=== PATIENT | male | born 1955 | race Caucasian/White ===

== ENCOUNTER → 2017-09-13 | Outpatient (CLI) | payer OTHER ==
[~2017-09-13] MED LIST: GADAVIST IV PRN; OXYC-57 PO; OXYC1TAB3 PO
--- NOTE | 2017-09-13 10:25 | DIAGNOSTIC IMAGING REPORT ---
MRI LUMBAR SPINE COMBINATION CLINICAL HISTORY: LUMBOSACRAL SPONDYLOSIS W/ RADICULOPATHY TECHNIQUE: Sagittal and axial T1, T2 and STIR images were obtained. Images were acquired before and after the administration of 8.5 cc of intravenous Gadavist. COMPARISON STUDY: June 2010 OBSERVATIONS: The vertebral bodies and posterior elements appear intact. There is no abnormal bony signal present to suggest a marrow replacement process. L1-2: No disc protrusions or extrusions. No evidence of spinal canal or neural foraminal compromise. L2-3: There is a mild circumferential disc bulge. There is a slight triangular configuration of the thecal sac. There is no significant foraminal narrowing L3-4: There is a tiny right posterior lateral disc protrusion. There is no significant spinal or foraminal stenosis. There is an L3-4 interspinous process spacer. L4-5: There is a minor circumferential disc bulge present. There is no significant spinal or foraminal stenosis. L5-S1: There is marked disc narrowing. There is no significant disc bulge or focal herniation. There is no significant spinal or foraminal stenosis. The conus medullaris and cauda equina appear normal. Postcontrast images reveal no pathologically enhancing masses. IMPRESSION: 1. Postsurgical changes with interval placement of an L3-4 posterior spinous process spacer 2. Multilevel spondylitic changes 3. Tiny right posterior lateral disc protrusion at the L3-4 level 4. No evidence of significant spinal stenosis Electronically signed by: Adalberto Coyne M.D. 09/13/2017 10:23 AM Dictated Date/Time: 09/13/2017 10:18 AM
== END | disposition home or self-care (01) ==
LOC: C.MRI 09:01
PROVIDERS: ATTEND Neurological Surgery
DX: M47.27 Other spondylosis with radiculopathy, lumbosacral region (principal)